=== PATIENT | female | born 1965 | race Caucasian/White ===

== ENCOUNTER → 2016-06-26 | Outpatient (CLI) | payer OTHER, BC ==
--- NOTE | 2016-06-29 08:02 | OR ---
ADMIT: 06/26/2016 RM/LOC: [facility] MR#: [id number] [address] [id number] WARREN FAUST [address] [address] Operative/Delivery Room Report SEX: F AGE: 50 : 1965 SURGERY DATE: 06/26/2016 SURGEON: Ramiro López MD PREOPERATIVE DIAGNOSIS: Right hip arthritis. POSTOPERATIVE DIAGNOSIS: Right hip arthritis. PROCEDURE PERFORMED: Right fluoroscopic-guided hip injection. I did inject 8 of lidocaine and 2 of Kenalog 40 with use of fluoroscopy. INDICATION: Warren is a 50-year-old female with right hip pain. She has some arthritis there, recommended trying an injection and see if we could get her hip feel better. She wanted to do that so she is here for that today. DESCRIPTION OF PROCEDURE: The patient was identified. Preoperatively she got a consent signed for right hip fluoroscopic-guided injection. We then prepped and draped in the usual sterile fashion. Did perform a time-out and then brought the x-ray in to confirm localization of the right hip and then placed a 22-gauge spinal needle intra-articularly. The intra-articular placement of this was confirmed with fluoroscopy. We then injected 8 of lidocaine and 2 of Kenalog 40 mg intra-articularly. She tolerated this very well. No issues. Put a Band-Aid over the needle poke site. I will see her in about three months. We will see how well this helped her. There were no complications. Ramiro López MD/ vdg JOB #: [id number] CC: Ramiro López, Attending Physician Edwin Heller, Family Physician
== END | disposition home or self-care (01) ==
LOC: RAD.S 08:55
PROC: 0S993ZZ Drainage of Right Hip Joint, Percutaneous Approach (ICD-10-PCS; principal; 2016-06-26)
DX: M25.551 Pain in right hip (principal)